=== PATIENT | female | born 1980 | race Two or more races ===

== ENCOUNTER 2018-03-25 05:56 | Inpatient (IN) | payer OTHER ==
[~2018-03-25] VITALS: Ht 172.7 cm; Wt 88.9 kg
[2018-03-25] MEDS ORDERED: PRENATAL MULTI1 EAC3 PO (07:01)
[2018-03-27] MEDS ORDERED: SENOKOT-S TABL1 EACH PO (11:38)
[2018-03-27] MEDS ORDERED: ANUCORT-HC25 MG RECTAL (11:38)
[2018-03-27] MEDS ORDERED: PREPLUS CA-FE1 EACH PO (11:38)
[2018-03-27] MEDS ORDERED: IBUPROFEN400 MG PO (11:38)
== END 2018-03-27 11:56 | disposition home or self-care, planned readmission (81) | DRG 775 ==
LOC: LDR 05:56 → SURG-SUITE 05:56 → LDR 06:16 → SURG-SUITE 11:44
PROC: 0HQ9XZZ Repair Perineum Skin, External Approach (ICD-10-PCS; principal; 2018-03-25)
PROC: 10E0XZZ Delivery of Products of Conception, External Approach (ICD-10-PCS; 2018-03-25)
PROC: 3E033VJ Introduction of Other Hormone into Peripheral Vein, Percutaneous Approach (ICD-10-PCS; 2018-03-25)
PROC: 4A1HXCZ Monitoring of Products of Conception, Cardiac Rate, External Approach (ICD-10-PCS; 2018-03-25)
DX: O70.0 First degree perineal laceration during delivery (principal); O41.03X0 Oligohydramnios, third trimester, not applicable or unspecified; Z3A.38 38 weeks gestation of pregnancy; Z37.0 Single live birth